=== PATIENT | female | born 1985 | race Caucasian/White ===

== ENCOUNTER → 2017-07-15 14:16 | Outpatient (CLI) | payer MEDICARE, MEDICAID, SELFPAY ==
[2017-07-21 13:50] LABS: HPV APTIMA, High Risk Negative (Negative)
== END ==
PROVIDERS: Visit Provider Obstetrics & Gynecology
DX: Z01.419 Encounter for gynecological examination (general) (routine) without abnormal findings (principal); Z12.4 Encounter for screening for malignant neoplasm of cervix
CPT/HCPCS: 88175; G0145

== ENCOUNTER → 2019-07-18 10:59 | Outpatient (CLI) | payer MEDICARE, MEDICAID, SELFPAY ==
[2015-07-25 06:21] VITALS: BMI 23.4
[2019-07-18 14:17] LABS: T4 Free Direct 1.19 ng/dL (0.76-1.46); Thyroid Stim Hormone (TSH) 1.11 uIU/mL (0.358-3.74)
== END ==
PROVIDERS: PCP Nurse Practitioner Family; Visit Provider Obstetrics & Gynecology
DX: N92.1 Excessive and frequent menstruation with irregular cycle (principal); N92.6 Irregular menstruation, unspecified
CPT/HCPCS: 36415; 84439; 84443

== ENCOUNTER 2021-07-29 15:50 | Outpatient (CLI) | payer MEDICARE, MEDICAID, SELFPAY ==
[2021-08-04 17:55] LABS: HPV APTIMA, High Risk Negative (Negative)
== END 2021-07-29 23:59 | disposition home or self-care (01) ==
LOC: LABSPEC 15:52
PROVIDERS: PCP Nurse Practitioner Family; Visit Provider Obstetrics & Gynecology
DX: Z12.4 Encounter for screening for malignant neoplasm of cervix (principal)
CPT/HCPCS: 87624; 88175; G0145